=== PATIENT | female | born 2000 | race Caucasian/White ===

== ENCOUNTER 2019-12-15 17:07 | Emergency (ER) | payer OTHER, MEDICAID, SELFPAY ==
[2019-12-15 17:12] VITALS: BP 137/79; PULSE 107; RESP 20; TEMP 36.1; O2SAT 100; BMI 26.6
--- NOTE | 2019-12-15 17:55 | ED_ITS ---
HPI - General Adult General Chief complaint: Shortness of Breath/Dyspnea Stated complaint: BAD FLARE UP TROUBLE BREATHING VISION PROBLEMS Time Seen by Provider: 12/15/19 17:50 Source: patient Mode of arrival: Wheelchair History of Present Illness HPI narrative: 19-year-old woman with influenza B diagnosed in July multiple neurologic complaints in the interval and 2 weeks ago was diagnosed by her neurologist in [place] with myasthenia gravis, eventually by process of elimination and the fact that she did improve with Mestinon(pyridostigmine). She notes that she does have flares and has had multiple frustrating ER visits where she is rehydrated and reassured that there is nothing wrong. Her triggers include increased stress, increased pain menses increased exertion and dehydration. Three days ago she went on a long hike and was feeling fine. That evening she noticed that she was slightly dizzy having blurry/double vision, nausea and diarrhea. She took some Zofran and did not end up throwing up. She also noted that she began having worsening peripheral pain in all extremities climbing up toward her umbilicus. Within the last 48 hours she has found that she is now having difficulty swallowing a directly aspirates anything that she actually eats or drinks and finds that she is having difficulty with aspirating her own salivary fluids. She has been unable to eat or drink for 48 hours and has noted concurrent decrease in urinary output. She also complains of increased allodynia, she and her mom both note that she was somewhat more confused last night, a feeling of ants crawling over her legs and hands, incre ased pain in her legs, feet in the lateral aspect of her hips, increased emotional lability. And today's noticing tight band around her chest making it more difficult for her to take a deep breath. With the vision changes she notes there is a fullness/tension around her eyes and a decrease in overall depth perception that gives a sensation of double vision. She also notes short-term memory loss increasing over the last 24 hours. Related Data Allergies Allergy/AdvReac Type Severity Reaction Status Date / Time No Known Drug Allergies Allergy Verified 12/15/19 17:21 Review of Systems Review of Systems Narrative: Pertinent positive and negative findings as per HPI Remainder of review of systems is otherwise unremarkable for Constitutional: Fevers, chills, weakness ENT: No sore throat, neck pain, ear pain CV: Chest pain, palpitations, dyspnea on exertion Respiratory: Cough, wheeze, dyspnea GI: Nausea, vomiting, diarrhea, change in bowel habits, black or bloody stools : Dysuria, hematuria, flank pain MS: Muscle weakness, numbness, joint swelling or warmth Skin: Rashes, nonhealing lesions Neuro: Syncope, dizziness, tingling Psych: Depression, anxiety, suicidal ideation Endocrine: Fatigue, heat or cold intolerance, very dry skin Heme: Easy bruising or bleeding Allergy: Seasonal rhinorrhea, itchy eyes Patient History Social History Smoking Status: Never smoker Smoking Status: Never smoker Substance Use Type: does not use Exam Narrative Exam Narrative: General: Healthy appearing, in mild distress. Able to give a complete and coherent history. Well-nourished well-developed HEENT: Moist mucous membranes, normal sclera with reactive pupils, light sensitivity Neck: No JVD, supple Respiratory: Lungs are clear to auscultation, no wheezing no rales no rhonchi. Full and symmetrical air movement Cardiac: Regular rate and rhythm no murmurs no bruits Abdomen: Soft nontender good bowel tones, no flank pain Skin: Warm and dry, no rashes Neurologic: Repeated myoclonic jerks in both upper and lower extremities, hyperesthesia hands and feet, no reflexes elicited in upper extremities or lower extremities with the exception of 1+ ankle jerk on the left Extremities: No trauma, well perfused Psych: Cooperative, appropriate insight and affect Initial Vital Signs Initial Vital Signs: Vital Signs Temperature 96.9 F L 12/15/19 17:12 Pulse Rate 107 H 12/15/19 17:12 Respiratory Rate 20 12/15/19 17:12 Blood Pressure 137/79 12/15/19 17:12 Pulse Oximetry 100 12/15/19 17:12 Course Orders Ordered: ED Orders 12/15/19 18:50 Urine Microscopic Stat 12/15/19 19:25 Complete Blood Count AUTO DIFF Stat Comprehensive Metabolic Panel Stat Magnesium Stat 12/15/19 21:07 Ammonia (NH3) Stat Creatine Kinase Stat Sodium Chloride (Normal Saline 0.9%) 1,000 mls @ 150 mls/hr IV CONT TORIE Last Admin: 12/15/19 22:01 Dose: 150 mls/hr Documented by: OSWALDO Discontinued Medications Sodium Chloride (Normal Saline 0.9%) 1,000 mls @ 1,000 mls/hr IV BOLUS ONE Stop: 12/15/19 19:36 Last Infusion: 12/15/19 21:44 Dose: 0 mls/hr Documented by: Admin: 12/15/19 19:37 Dose: 1,000 mls/hr Documented by: OSWALDO Sodium Chloride (Normal Saline 0.9%) 1,000 mls @ 1,000 mls/hr IV BOLUS ONE Stop: 12/15/19 19:40 Last Infusion: 12/15/19 21:44 Dose: 0 mls/hr Documented by: Admin: 12/15/19 19:38 Dose: 1,000 mls/hr Documented by: OSWALDO Acetaminophen (Ofirmev) 1,000 mg in 100 mls @ 400 mls/hr IV NOW ONE Stop: 12/15/19 22:45 Last Infusion: 12/16/19 00:41 Dose: 0 mls/hr Documented by: Admin: 12/16/19 00:23 Dose: 400 mls/hr Documented by: OSWALDO Immune Globulin (Gamastan) 10.5 ml IM NOW ONE Stop: 12/15/19 20:29 Last Admin: 12/15/19 21:45 Dose: Not Given Documented by: OSWALDO Ketorolac Tromethamine (Toradol) 15 mg IV NOW ONE Stop: 12/15/19 18:38 Last Admin: 12/15/19 19:38 Dose: 15 mg Documented by: OSWALDO Vital Signs Vital signs: Vital Signs - 8 hr 12/15/19 21:12 12/15/19 22:30 12/15/19 23:30 Pulse Rate 88 75 91 H Respiratory Rate 16 15 15 Blood Pressure Blood Pressure [Right Arm] 105/69 93/52 L 95/67 Pulse Oximetry 100 97 97 12/16/19 00:51 Pulse Rate 85 Respiratory Rate 84 H Blood Pressure 99/54 L Blood Pressure [Right Arm] Pulse Oximetry 99 Medical Decision Making Lab Data Lab results narrative: 3.45 L is best Forced Vital Capacity 35 Mean Insp Pressure (Average MIP for 20yrs 80) 47% 26 Mean Exp Pressure Result diagrams: 12/15/19 19:25 12/15/19 19:25 Labs: Lab Results 12/15/19 12/15/19 12/15/19 Range/Units 18:50 19:25 19:25 WBC 8.0 (4.5-11.0) X10^3/uL RBC 4.67 (4.0-5.2) X10^6/uL Hgb 13.9 (12.0-16.0) g/dL Hct 40.7 (36-46) % MCV 87.2 (80-100) fL MCH 29.7 (26-34) PG MCHC 34.0 (30-36) % RDW 13.0 (11.6-14.8) % Plt Count 249 (150-400) X10^3/uL Neut % (Auto) 52.3 (50-75) % Lymph % (Auto) 39.9 (25-40) % Gilliam % (Auto) 5.3 (3-14) % Eos % (Auto) 2.1 (2-4) % Baso % (Auto) 0.4 (0-2) % Neut # (Auto) 4200 (5699-5641) /uL Lymph # (Auto) 3200 (6828-7289) /uL Gilliam # (Auto) 400 (0-900) /uL Eos # (Auto) 200 (0-450) /uL Baso # (Auto) 0 (0-100) /uL Sodium 137 (137-145) mmol/L Potassium 4.0 (3.4-5.1) mmol/L Chloride 103 (98-107) mmol/L Carbon Dioxide 29 (22-32) mmol/L BUN 9 (7-17) mg/dL Creatinine 0.71 (0.52-1.04) mg/dL Estimated GFR > 60.0 (>60) mL/min BUN/Creatinine Ratio 12.7 (6-22) Glucose 119 H (70-100) mg/dL Calcium 9.3 (8.4-10.2) mg/dL Magnesium 1.9 (1.6-2.3) mg/dL Total Bilirubin 0.2 (0.2-1.3) mg/dL AST 41 H (14-36) IU/L ALT 38 H (<35) IU/L Alkaline Phosphatase 81 (38-126) U/L Ammonia (9-30) umol/L Total Creatine Kinase (30-135) U/L Total Protein 7.1 (6.3-8.2) g/dL Albumin 4.3 (3.5-5.0) g/dL Globulin 2.8 (1.7-4.1) g/dL Albumin/Globulin Ratio 1.5 (1.0-2.8) Urine RBC 0-1/hpf (0-5/HPF) Urine WBC 0-1/hpf (0-5/HPF) Ur Squamous Epith Cells 0-1 /hpf (0-5/HPF) Urine Bacteria None seen (None) Ur Culture Indicated? Cult not indicated 12/15/19 12/15/19 Range/Units 21:07 21:07 WBC (4.5-11.0) X10^3/uL RBC (4.0-5.2) X10^6/uL Hgb (12.0-16.0) g/dL Hct (36-46) % MCV (80-100) fL MCH (26-34) PG MCHC (30-36) % RDW (11.6-14.8) % Plt Count (150-400) X10^3/uL Neut % (Auto) (50-75) % Lymph % (Auto) (25-40) % Gilliam % (Auto) (3-14) % Eos % (Auto) (2-4) % Baso % (Auto) (0-2) % Neut # (Auto) (1559-3312) /uL Lymph # (Auto) (1082-9370) /uL Gilliam # (Auto) (0-900) /uL Eos # (Auto) (0-450) /uL Baso # (Auto) (0-100) /uL Sodium (137-145) mmol/L Potassium (3.4-5.1) mmol/L Chloride (98-107) mmol/L Carbon Dioxide (22-32) mmol/L BUN (7-17) mg/dL Creatinine (0.52-1.04) mg/dL Estimated GFR (>60) mL/min BUN/Creatinine Ratio (6-22) Glucose (70-100) mg/dL Calcium (8.4-10.2) mg/dL Magnesium (1.6-2.3) mg/dL Total Bilirubin (0.2-1.3) mg/dL AST (14-36) IU/L ALT (<35) IU/L Alkaline Phosphatase (38-126) U/L Ammonia 11 (9-30) umol/L Total Creatine Kinase 60 (30-135) U/L Total Protein (6.3-8.2) g/dL Albumin (3.5-5.0) g/dL Globulin (1.7-4.1) g/dL Albumin/Globulin Ratio (1.0-2.8) Urine RBC (0-5/HPF) Urine WBC (0-5/HPF) Ur Squamous Epith Cells (0-5/HPF) Urine Bacteria (None) Ur Culture Indicated? Urine Dip Bedside Urine Glucose Negative Bedside Urine Bilirubin - Negative Bedside Urine Ketone - Negative Urine Specific [place] 1.010 Bedside Urine Occult Blood +/- Bedside Urine pH 7.0 Bedside Urine Protein - Negative Bedside Urine Urobilinogen - Negative Bedside Urine Nitrite - Negative Bedside Urine Leukocytes - Negative Esterase Point of care testing: Urine Dip Bedside Urine Glucose Negative Bedside Urine Bilirubin - Negative Bedside Urine Ketone - Negative Urine Specific [place] 1.010 Bedside Urine Occult Blood +/- Bedside Urine pH 7.0 Bedside Urine Protein - Negative Bedside Urine Urobilinogen - Negative Bedside Urine Nitrite - Negative Bedside Urine Leukocytes - Negative Esterase MDM Narrative Medical decision making narrative: 19-year-old woman with an interesting yet confusing and certainly concerning constellation of neurologic symptoms. Recent presumptive diagnosis of myasthenia gravis after influenza B episode in July. Worsening symptoms in the last 48 hours now with complaints of intermittent difficulty swallowing at times even unable to handle her own secretion without the sensation of aspiration. She is also having increasing tightness in a bandlike feeling around her chest with a decrease in mean inspiratory pressure to less than 50% of expected. She still is able to speak in full sentences and has full and symmetric lung movement. Initial discussion with Dr. Stewart, neurology at [facility], felt that transfer for further evaluation was appropriate. The patient had been instructed by her outpatient neurologist to ask her providers to discuss IVIG administration should she present with similar symptoms. Unfortunately, the total volume of IV IG available in our facility is less than in the equivalent dose of 0.08 per kilos. In discussion with neurology opted to wait until she got to [facility] where she can get the entire 1st dose of 0.4 milligrams/kilo Patient was feeling somewhat better after IV hydration but still having significant peripheral pain. Slight improvement with Toradol. Narcotics have e xacerbated her pain in the past. We did try IV Tylenol to see if this might help in alleviating some of her symptoms. Care is reviewed with Dr Auguste, admitting hospitalist. Patient is transported via BLS to [facility] . Discharge Plan Departure Patient Disposition: [facility] Clinical Impression: Myasthenia gravis
--- NOTE | 2019-12-15 18:06 | PC.NURSE ---
pt mom states that they need to acquire a c pap for her. pt has difficulty swallowing sometimes but is feeling weaker and in pain from her hike 2 days ago. pt has taken two 5mg tabs of hydrocodone in 2 days, one flexeril and three 8mg zofran odt. pt isn't feeling better, states she has myasthenia gravis per her new neurologist.
[2019-12-15 19:34] LABS: Add Manual Diff / Slide Review NO; Basophils Absolute Auto 0 /uL (0-100); Basophils Percent Auto 0.4 % (0-2); Eosinophils Absolute Auto 200 /uL (0-450); Eosinophils Percent Auto 2.1 % (2-4); Hematocrit 40.7 % (36-46); Hemoglobin 13.9 g/dL (12.0-16.0); Lymphocytes Absolute Auto 3200 /uL (1100-4500); Lymphocytes Percent Auto 39.9 % (25-40); Mean Corpuscular Hemoglobin 29.7 PG (26-34); Mean Corpuscular Volume 87.2 fL (80-100); Monocytes Absolute Auto 400 /uL (0-900); Monocytes Percent Auto 5.3 % (3-14); Neutrophils Absolute Auto 4200 /uL (1500-7000); Neutrophils Percent Auto 52.3 % (50-75); Platelet Count 249 X10^3/uL (150-400); Red Blood Cell Count 4.67 X10^6/uL (4.0-5.2)
[2019-12-15] MEDS: SODIUM CHLORIDE 0.9% 1,000 ML 1000 ML IV ×2 (19:37→19:38)
[2019-12-15] MEDS: KETOROLAC 60 MG/2 ML VIAL 15 MG IV (19:38)
[2019-12-15 19:48] LABS: Alanine Aminotransferase 38 IU/L (<35); Albumin 4.3 g/dL (3.5-5.0); Albumin Globulin Ratio 1.5 (1.0-2.8); Alkaline Phosphatase 81 U/L (38-126); Aspartate Aminotransferase 41 IU/L (14-36); BUN Creatinine Ratio 12.7 (6-22); Bilirubin Total 0.2 mg/dL (0.2-1.3); Blood Urea Nitrogen 9 mg/dL (7-17); Calcium 9.3 mg/dL (8.4-10.2); Carbon Dioxide 29 mmol/L (22-32); Chloride 103 mmol/L (98-107); Estimated Glomerular Filt Rate > 60.0 mL/min (>60); Globulin 2.8 g/dL (1.7-4.1); Glucose 119 mg/dL (70-100); HEMOLYSIS < 15 (0-50); Magnesium 1.9 mg/dL (1.6-2.3); Sodium 137 mmol/L (137-145); Total Protein 7.1 g/dL (6.3-8.2)
[2019-12-15 19:58] LABS: Bacteria Urine None Seen
[2019-12-15 20:05] LABS: RBC Urine 0-1/HPF (0-5/HPF)
[2019-12-15 20:06] LABS: Culture Indicated Urine Cult Not Indicated; Squamous Epithelial Cell Urine 0-1 /HPF (0-5/HPF); WBC Urine 0-1/HPF (0-5/HPF)
[2019-12-15 21:12] VITALS: BP 105/69; PULSE 88; RESP 16; O2SAT 100
[2019-12-15 21:24] LABS: Ammonia (NH3) 11 umol/L (9-30); Creatine Kinase 60 U/L (30-135)
[2019-12-15] MEDS: SODIUM CHLORIDE 0.9% 1,000 ML 150 ML IV (22:01)
[2019-12-15 22:30] VITALS: BP 93/52; PULSE 75; RESP 15; O2SAT 97
--- NOTE | 2019-12-15 22:38 | PC.NURSE ---
pt's legs felt unsteady so placed in wheelchair for return to room
[2019-12-15 23:30] VITALS: BP 95/67; PULSE 91; RESP 15; O2SAT 97
[2019-12-16] MEDS: ACETAMINOPHEN IV 1,000 MG/100 ML VIAL 400 MG IV (00:23)
[2019-12-16 00:51] VITALS: BP 99/54; PULSE 85; RESP 84; O2SAT 99
== END 2019-12-16 00:52 | disposition short-term general hospital (02) ==
PROVIDERS: Emergency Provider Emergency Medicine
DX: G70.00 Myasthenia gravis without (acute) exacerbation (principal); R11.0 Nausea; R19.7 Diarrhea, unspecified
CPT/HCPCS: 36415; 80053; 81003; 81015; 82140; 82550; 83735; 85025; 96361; 96365; 96375; 99284; J0131; J1885

== ENCOUNTER 2020-03-04 20:37 | Emergency (ER) | payer OTHER, MEDICAID, SELFPAY ==
[2020-03-04 20:48] VITALS: BP 132/85; PULSE 119; RESP 14; TEMP 36.6; O2SAT 99; BMI 28.1
--- NOTE | 2020-03-04 22:14 | DI.RAD.S_ITS ---
PROCEDURE: XR CHEST 1V INDICATIONS: chest pain TECHNIQUE: One view of the chest was acquired. COMPARISON: None. FINDINGS: Surgical changes and devices: Port-A-Cath in normal position from right-sided approach. Lungs and pleura: Lungs are clear. No pleural effusions or pneumothorax. Mediastinum: Mediastinal contours appear normal. Heart size is normal. Bones and chest wall: No suspicious bony lesions. Overlying soft tissues appear unremarkable. IMPRESSION: Port-A-Cath in normal position, source of chest pain is not found. Dictated by: Piero Lawrence M.D. on 03/05/2020 at 8:28 Approved by: Piero Lawrence M.D. on 03/05/2020 at 8:29
[2020-03-04 22:22] VITALS: BP 112/68; PULSE 110; RESP 18; O2SAT 100
--- NOTE | 2020-03-04 22:41 | ED_ITS ---
HPI - Chest Pain General Chief Complaint: Chest Pain Stated Complaint: chest palpitations, pain Time Seen by Provider: 03/04/20 22:14 Source: patient Mode of arrival: Wheelchair Limitations: no limitations History of Present Illness HPI narrative: 19-year-old female here for evaluation of chest pain and palpitations. A couple days ago patient had a port placed in her right upper chest for vascular access secondary to her history of myasthenia gravis and the need for frequent IV access. She states that during that procedure she had palpitations. States she was evaluated that time was told that everything was okay. States that earlier today she started feeling palpitations and pain which then caused her quite a bit of anxiety. She does have a history of anxiety. Takes medicine for that. Did take 1 of her prescribed Valium is a prior to arrival which reports only helped her symptoms a small amount. Related Data Allergies Allergy/AdvReac Type Severity Reaction Status Date / Time No Known Drug Allergies Allergy Verified 12/15/19 17:21 Review of Systems Constitutional Constitutional: Denies frequent falls and Denies headache(s) ENT Ears, Nose, Mouth, and Throat: Denies headache(s) and Denies neck pain Cardiovascular Cardiovascular: Reports chest pain and Denies dyspnea Respiratory Respiratory: Denies cough and Denies dyspnea Gastrointestinal Gastrointestinal: Denies abdominal pain, Denies nausea and Denies vomiting Musculoskeletal Musculoskeletal: Denies neck pain Integumentary/Breasts Skin/Breast: Denies lesions and Denies rash Neurologic Neurologic: Denies behavioral changes, Denies frequent falls and Denies headache(s) Psychiatric Psychiatric: Reports anxiety, Denies behavioral changes and Reports panic attacks Hematologic/Lymphatic Hematologic/Lymphatic: Denies easy bleeding and Denies easy bruising Allergic/Immunologic Allergic/Immunologic: Denies urticaria Patient History Medical History Anxiety (Acute) Myasthenia gravis (Acute) Social History Smoking Status: Never smoker Smoking Status: Never smoker Substance Use Type: does not use Exam Initial Vital Signs Initial Vital Signs: Vital Signs Temperature 97.9 F 03/04/20 20:48 Pulse Rate 119 H 03/04/20 20:48 Respiratory Rate 14 03/04/20 20:48 Blood Pressure 132/85 08/20/20 20:48 Pulse Oximetry 99 03/04/20 20:48 Const General: cooperative and comfortable Limitations: mental status not altered HENMT Head: normal to inspection and normocephalic Resp Effort & Inspection: normal respiratory effort Auscultation: clear to auscultation bilaterally Cardio Rate: tachycardic Rhythm: regular rhythm GI Inspection: non-distended Palpation: soft Skin Lesions: no lesions Rashes: no rashes Neuro General: patient alert, patient awake and patient oriented x3 Cognition: normal cognition Speech: speech normal Extrem General: normal to inspection and capillary refill normal Psych Appearance: grossly normal and well kempt Course Orders Ordered: ED Orders 03/04/20 20:48 EKG-12 Lead Stat 03/04/20 22:14 XR chest 1V Stat Discontinued Medications Lorazepam (Ativan) 1 mg PO NOW ONE Stop: 03/04/20 22:42 Last Admin: 03/04/20 22:47 Dose: 1 mg Documented by: CONSUELO Vital Signs Vital signs: Vital Signs - 8 hr 03/04/20 20:48 03/04/20 22:22 Temperature 97.9 F Pulse Rate 119 H 110 H Respiratory Rate 14 18 Blood Pressure 132/85 112/68 Pulse Oximetry 99 100 MDM - Chest Pain Imaging Data Chest x-ray: Attestation: I personally reviewed and interpreted this imaging study as follows: My Impression: Normal size heart, medical port in appropriate position. No pneumothorax ECG Data Attestation: I personally reviewed and interpreted this ECG as follows: Prior ECG tracings: not available for review Interpretation: Sinus tachycardia Ventricular rate of 119 Normal axis Normal QRS Normal QTC No ST T wave changes [facility] Narrative Medical decision making narrative: Have a very strong suspicion that the patient's symptoms are anxiety related. Low suspicion for ACS. Chest x-ray shows no residual issues from her port placement in just a couple days ago. Feel patient can be safely discharged home we could hold on further workup for now. She was given return precautions and follow-up instructions. She expressed understanding and agreement Discharge Plan Departure Patient Disposition: Home Clinical Impression: Atypical chest pain, Anxiety Discharge Date/Time: 03/04/20 22:52 Instructions: Anxiety and Panic Attacks (Alternative Therapy), DI for Atypical Chest Pain Activity Restrictions/Additional Instructions: Recommend that you continue all of your medications as directed. They recommend that tomorrow you contact your mental health provider for follow-up. Return to the emergency department for any new or worsening symptoms Referrals: Michelle Adam ARNP [Primary Care Provider] -
[2020-03-04] MEDS: LORazepam 0.5 MG TABLET 1 MG PO (22:47)
== END 2020-03-04 22:52 | disposition home or self-care (01) ==
PROVIDERS: Emergency Provider Emergency Medicine; PCP Nurse Practitioner
DX: F41.9 Anxiety disorder, unspecified (principal); R07.89 Other chest pain
CPT/HCPCS: 71045; 93005; 93010; 99284

== ENCOUNTER → 2021-02-24 14:36 | Outpatient (CLI) | payer OTHER, MEDICAID, SELFPAY ==
--- NOTE | 2021-02-24 | DI.US.S_ITS ---
PROCEDURE: US ABDOMEN COMPLETE INDICATIONS: PAIN TECHNIQUE: Real-time scanning was performed of the abdominal and retroperitoneal organs, with image documentation. COMPARISON: None. FINDINGS: Liver: Liver is normal in size and homogeneous in echotexture. Gallbladder: Normally distended. No gallbladder wall thickening. No pericholecystic fluid. No sludge or gallstone. Biliary ducts: Nondilated. Pancreas: Visualized portions of the pancreas are sonographically normal. Spleen: Normal size and appearance of the spleen. Kidneys: Normal size and appearance of both kidneys. No shadowing calculus or hydronephrosis. Aorta: Visualized aorta is normal in caliber at less than 3 cm. Iliacs: Proximal common iliac arteries are normal in caliber at less than 2.5 cm. IVC: Intrahepatic inferior vena cava is patent. Miscellaneous: No free abdominal fluid. IMPRESSION: No acute or otherwise significant finding. Dictated by: Roberto Louis M.D. on 02/24/2021 at 15:54 Approved by: Roberto Louis M.D. on 02/24/2021 at 15:59
== END ==
PROVIDERS: PCP Nurse Practitioner; Referring Provider Internal Medicine; Visit Provider Internal Medicine
DX: R10.9 Unspecified abdominal pain (principal)
CPT/HCPCS: 76700

== ENCOUNTER 2022-04-12 16:03 | Emergency (ER) | payer OTHER, MEDICAID, SELFPAY ==
[2022-04-12 16:29] VITALS: BP 125/83; PULSE 138; RESP 18; TEMP 36.3; O2SAT 99; BMI 26.6
--- NOTE | 2022-04-12 16:51 | PC.NURSE ---
Mother of patient wants her diaphragm evaluated right now. Does not want to wait. Randa Chvaez, provider evaluated patient to see if she was safe to return to waiting room. Mother concerned that we do not do plasmapheresis at this hospital. Pt appeared to have 1 syncopal episode where she slumped her head to the side while in her wheel chair and did not respond for 5 seconds. Then sat up and looked around and said what happened? then was oriented. This syncopal episode occurred after she stated, I have a condition where I pass out when you take my BP. When told she would need to go back to the waiting room, Mother said, shes fine now, but she might not be later. you expect us to just wait until she is not ok? Pt had EKG done since heart rate was elevated. Mother left with daughter and said she was going to [place].
== END 2022-04-12 17:00 | disposition left against medical advice (07) ==
PROVIDERS: Emergency Provider Emergency Medicine
DX: R55 Syncope and collapse (principal); R06.02 Shortness of breath; R11.2 Nausea with vomiting, unspecified
CPT/HCPCS: 93005; 99281